=== PATIENT | female | born 1990 | race African-American/Black ===

== ENCOUNTER 2021-03-10 08:20 | Emergency (ER) | payer SELFPAY ==
[2021-03-10 23:43] LABS: SARS-CoV-2 PCR by NAA Not Detected (NotDetected)
== END 2021-03-10 09:13 | disposition home or self-care (01) ==
LOC: ERS 08:20
DX: B34.9 Viral infection, unspecified (principal); K08.89 Other specified disorders of teeth and supporting structures; F17.210 Nicotine dependence, cigarettes, uncomplicated; Z20.822 Contact with and (suspected) exposure to COVID-19
CPT/HCPCS: 99283; U0003; U0005

== ENCOUNTER 2021-03-22 17:51 | Emergency (ER) | payer SELFPAY ==
[2021-03-22] MEDS ORDERED: Ibuprofen 200 MG TAB ONE (19:23)
[2021-03-22] MEDS ORDERED: Metoclopramide HCl 10 MG TAB ONE (19:23)
[2021-03-23 13:07] LABS: SARS-CoV-2 PCR by NAA DETECTED (NotDetected)
== END 2021-03-22 19:33 | disposition home or self-care (01) ==
LOC: ERS 17:51
DX: U07.1 COVID-19 (principal); F17.210 Nicotine dependence, cigarettes, uncomplicated
CPT/HCPCS: 99284; U0003; U0005